=== PATIENT | female | born 1950 | race Caucasian/White ===

== ENCOUNTER → 2019-03-07 | Outpatient (CLI) | payer OTHER, MEDICARE | LOC: CIMAGING 11:44 ==

== ENCOUNTER → 2019-03-28 | Outpatient (CLI) | payer OTHER, MEDICARE | LOC: FIMAGING 10:26 ==

== ENCOUNTER → 2019-03-31 | Outpatient (CLI) | payer OTHER, MEDICARE | LOC: FIMAGING 07:39 ==